=== PATIENT | female | born 1960 | race Caucasian/White ===

== ENCOUNTER 2017-12-26 21:48 | Inpatient (IN) | payer BC ==
[2017-12-26] MEDS: DEXTROSE 5%-0.45% NACL 1,000 ML IV (23:15)
[2017-12-26] MEDS: morphine 2 MG INJ IV (23:15)
[2017-12-27 00:58] LABS: ABNORMAL IP MESSAGE 1; HEMATOCRIT 27.9 % (37.0-47.0); HEMOGLOBIN 9.7 g/dl (12.0-16.0); MEAN CORPUSCULAR HEMOGLOBIN 32.1 pg (29.0-33.0); MEAN CORPUSCULAR HGB CONC 34.8 g/dl (32.0-37.0); MEAN CORPUSCULAR VOLUME 92.4 fl (82.0-101.0); MEAN PLATELET VOLUME 10.2 fl (7.4-10.4); PLATELET COUNT 206 10^3/UL (140-415); RED BLOOD COUNT 3.02 10^6/ul (4.20-5.40); RED CELL DISTRIBUTION WIDTH 12.6 % (11.5-14.5)
[2017-12-27 00:58] LABS: WHITE BLOOD COUNT 12.7 10^3/ul (4.8-10.8)
[2017-12-27 01:16] LABS: ALANINE AMINOTRANSFERASE 17 IU/L (13-69); ALBUMIN 3.8 g/dl (3.3-4.9); ALBUMIN/GLOBULIN RATIO 1.11; ALKALINE PHOSPHATASE 89 IU/L (42-121); ANION GAP 15 (8-16); ASPARTATE AMINO TRANSFERASE 11 IU/L (15-46); BILIRUBIN,INDIRECT 0.1 mg/dl (0-1.1); BILIRUBIN,TOTAL 0.1 mg/dl (0.2-1.3); BLOOD UREA NITROGEN 34 mg/dl (7-20); CALCIUM 8.5 mg/dl (8.4-10.2); CARBON DIOXIDE 22 mmol/L (21-31); CHLORIDE 104 mmol/L (97-110); CREATININE 1.44 mg/dl (0.44-1.00); GLUCOSE 144 mg/dl (70-220); MAGNESIUM 2.4 mg/dl (1.7-2.5); PHOSPHORUS 2.8 mg/dl (2.5-4.9); POTASSIUM 3.9 mmol/L (3.5-5.1); SODIUM 137 mmol/L (135-144); TOTAL PROTEIN 7.2 g/dl (6.1-8.1)
[2017-12-27 01:24] LABS: POSITIVE DIFF @See below
[2017-12-27 01:25] LABS: ADD MAN DIFF? YES
[2017-12-27 03:56] LABS: BAND NEUTROPHILS % (M) 8 % (0-4); BASOPHIL #M 0.1 10^3/ul (0.0-0.0); BASOPHILS % (M) 1 % (0-2); EOSINOPHILS % (M) 2 % (0-7); LYMPHOCYTES #M 1.9 10^3/ul (0.8-2.9); LYMPHOCYTES % (M) 15 % (15-51); METAMYELOCYTES #M 0.3 10^3/ul (0.0-0.0); METAMYELOCYTES %M 3 % (0-0); MONOCYTE #M 0.7 10^3/ul (0.3-0.9); MONOCYTES % (M) 6 % (0-11); MYELOCYTES #M 0.2 10^3/ul (0.0-0.0); MYELOCYTES % (M) 2 % (0-0); PLATELET ESTIMATE NORMAL; PROMYELOCYTES #M 0.2 10^3/ul (0-0); PROMYELOCYTES % (M) 2 % (0-0); SEG NEUT #M 7.9 10^3/ul (1.6-7.5); SEGMENTED NEUTROPHILS (M) % 61 % (39-77); SMUDGE%M 1 % (0-0)
[2017-12-27] MEDS: morphine 2 MG INJ IV ×3 (05:55→19:43)
[2017-12-27 07:20] LABS: ADD UMIC YES; UR ASCORBIC ACID NEGATIVE (NEGATIVE); UR BACTERIA FEW /HPF (NONE SEEN); UR BILIRUBIN (Dip) NEGATIVE (NEGATIVE); UR BLOOD (Dip) 1+ mg/dL (NEGATIVE); UR CLARITY CLEAR (CLEAR); UR COLOR YELLOW (YELLOW); UR GLUCOSE (Dip) NEGATIVE (NEGATIVE); UR KETONES (Dip) NEGATIVE (NEGATIVE); UR LEUKOCYTE ESTERASE (Dip) NEGATIVE Leu/ul (NEGATIVE); UR NITRITE (Dip) NEGATIVE (NEGATIVE); UR RBC 4 /HPF (0-5); UR SPECIFIC GRAVITY (Dip) 1.018 (1.003-1.030); UR TOTAL PROTEIN (Dip) 2+ mg/dl (NEGATIVE); UR UROBILINOGEN (Dip) NEGATIVE (NEGATIVE); UR WBC 4 /HPF (0-5)
[2017-12-27] MEDS: FAMOTIDINE 20 MG INJ IV ×2 (09:02→20:11)
[2017-12-27] MEDS: DEXTROSE 5%-0.45% NACL 1,000 ML IV (09:03)
[2017-12-27] MEDS: metroNIDAZOLE 500 MG/NS (PMX) 100 ML IVPB ×2 (12:16→21:33)
[2017-12-27 12:52] LABS: ANION GAP 16 (8-16); BLOOD UREA NITROGEN 22 mg/dl (7-20); CALCIUM 8.4 mg/dl (8.4-10.2); CARBON DIOXIDE 22 mmol/L (21-31); CHLORIDE 104 mmol/L (97-110); CREATININE 1.02 mg/dl (0.44-1.00); GLUCOSE 122 mg/dl (70-220); SODIUM 138 mmol/L (135-144)
[2017-12-27] MEDS: CIPROFLOXACIN 400MG/D5W 200 ML IVPB ×2 (13:20→20:11)
[2017-12-27] MEDS: SOD CHLORIDE 0.9% 1,000 ML IV ×2 (14:21→23:28)
[2017-12-27] MEDS: TAMSULOSIN (SR) 0.4 MG CAP PO (20:11)
[2017-12-28] MEDS: morphine 2 MG INJ IV ×4 (04:41→19:58)
[2017-12-28] MEDS: metroNIDAZOLE 500 MG/NS (PMX) 100 ML IVPB ×3 (05:23→22:21)
[2017-12-28] MEDS: SOD CHLORIDE 0.9% 1,000 ML IV ×3 (06:00→22:21)
[2017-12-28] MEDS: CIPROFLOXACIN 400MG/D5W 200 ML IVPB ×2 (08:26→20:25)
[2017-12-28] MEDS: FAMOTIDINE 20 MG INJ IV ×2 (08:27→20:24)
[2017-12-28 09:01] LABS: WHITE BLOOD COUNT 9.9 10^3/ul (4.8-10.8)
[2017-12-28 09:01] LABS: ABNORMAL IP MESSAGE 1; HEMATOCRIT 25.8 % (37.0-47.0); HEMOGLOBIN 8.5 g/dl (12.0-16.0); MEAN CORPUSCULAR HEMOGLOBIN 31.6 pg (29.0-33.0); MEAN CORPUSCULAR HGB CONC 32.9 g/dl (32.0-37.0); MEAN CORPUSCULAR VOLUME 95.9 fl (82.0-101.0); MEAN PLATELET VOLUME 10.1 fl (7.4-10.4); PLATELET COUNT 206 10^3/UL (140-415); RED BLOOD COUNT 2.69 10^6/ul (4.20-5.40); RED CELL DISTRIBUTION WIDTH 12.6 % (11.5-14.5)
[2017-12-28 09:04] LABS: POSITIVE DIFF @See below
[2017-12-28 09:05] LABS: ADD MAN DIFF? YES
[2017-12-28 09:26] LABS: ALANINE AMINOTRANSFERASE 21 IU/L (13-69); ALBUMIN 3.1 g/dl (3.3-4.9); ALKALINE PHOSPHATASE 87 IU/L (42-121); ANION GAP 14 (8-16); ASPARTATE AMINO TRANSFERASE 17 IU/L (15-46); BLOOD UREA NITROGEN 12 mg/dl (7-20); CALCIUM 8.1 mg/dl (8.4-10.2); CARBON DIOXIDE 22 mmol/L (21-31); CHLORIDE 108 mmol/L (97-110); CREATININE 0.84 mg/dl (0.44-1.00); GLUCOSE 108 mg/dl (70-220); POTASSIUM 3.6 mmol/L (3.5-5.1); SODIUM 140 mmol/L (135-144); TOTAL PROTEIN 6.2 g/dl (6.1-8.1)
[2017-12-28 10:04] LABS: BAND NEUTROPHILS #M 1.1 10^3/ul (0.0-0.6); BAND NEUTROPHILS % (M) 12 % (0-4); EOSINOPHILS % (M) 1 % (0-7); LYMPHOCYTES #M 1.6 10^3/ul (0.8-2.9); LYMPHOCYTES % (M) 17 % (15-51); MONOCYTES % (M) 21 % (0-11); PLATELET ESTIMATE NORMAL; REACTIVE LYMPHOCYTES #M 0.4 10^3/ul (0.0-0.0); REACTIVE LYMPHOCYTES% (M) 5 % (0-0); SEG NEUT #M 4.5 10^3/ul (1.6-7.5); SEGMENTED NEUTROPHILS (M) % 44 % (39-77); SMUDGE%M 12 % (0-0)
[2017-12-28] MEDS: BISACODYL (EC) 5 MG TAB PO (15:13)
[2017-12-28 15:29] LABS: ADD UMIC YES; UR ASCORBIC ACID NEGATIVE (NEGATIVE); UR BILIRUBIN (Dip) NEGATIVE (NEGATIVE); UR BLOOD (Dip) 1+ mg/dL (NEGATIVE); UR CLARITY CLEAR (CLEAR); UR COLOR YELLOW (YELLOW); UR GLUCOSE (Dip) 1+ mg/dL (NEGATIVE); UR KETONES (Dip) NEGATIVE (NEGATIVE); UR LEUKOCYTE ESTERASE (Dip) TRACE Leu/ul (NEGATIVE); UR NITRITE (Dip) NEGATIVE (NEGATIVE); UR RBC 31 /HPF (0-5); UR SPECIFIC GRAVITY (Dip) 1.013 (1.003-1.030); UR TOTAL PROTEIN (Dip) NEGATIVE (NEGATIVE); UR UROBILINOGEN (Dip) 1+ mg/dL (NEGATIVE); UR WBC 0 /HPF (0-5)
[2017-12-28] MEDS: POLYETHYLENE GLYCOL 3350 119 GM POWDER PO (18:34)
[2017-12-28] MEDS: ONDANSETRON 4 MG INJ IV (20:24)
[2017-12-28] MEDS: TAMSULOSIN (SR) 0.4 MG CAP PO (20:24)
[2017-12-29] MEDS: morphine 2 MG INJ IV ×6 (00:14→22:14)
[2017-12-29] MEDS: MAGNESIUM CITRATE 300 ML BTL PO (00:16)
[2017-12-29] MEDS: metroNIDAZOLE 500 MG/NS (PMX) 100 ML IVPB ×3 (06:31→21:08)
[2017-12-29] MEDS: SOD CHLORIDE 0.9% 1,000 ML IV ×3 (06:32→22:21)
[2017-12-29] MEDS: POLYETHYLENE GLYCOL 3350 119 GM POWDER PO (06:39)
[2017-12-29] MEDS: BISACODYL (EC) 5 MG TAB PO (06:40)
[2017-12-29 06:58] LABS: ABNORMAL IP MESSAGE 1; HEMATOCRIT 26.8 % (37.0-47.0); HEMOGLOBIN 8.9 g/dl (12.0-16.0); MEAN CORPUSCULAR HEMOGLOBIN 31.2 pg (29.0-33.0); MEAN CORPUSCULAR HGB CONC 33.2 g/dl (32.0-37.0); MEAN PLATELET VOLUME 10.2 fl (7.4-10.4); PLATELET COUNT 244 10^3/UL (140-415); RED BLOOD COUNT 2.85 10^6/ul (4.20-5.40); RED CELL DISTRIBUTION WIDTH 12.4 % (11.5-14.5)
[2017-12-29 06:58] LABS: WHITE BLOOD COUNT 15.7 10^3/ul (4.8-10.8)
[2017-12-29 07:03] LABS: ADD MAN DIFF? YES; POSITIVE DIFF @See below
[2017-12-29 07:19] LABS: ANION GAP 16 (8-16); BLOOD UREA NITROGEN 7 mg/dl (7-20); CALCIUM 8.3 mg/dl (8.4-10.2); CARBON DIOXIDE 21 mmol/L (21-31); CHLORIDE 107 mmol/L (97-110); CREATININE 0.73 mg/dl (0.44-1.00); GLUCOSE 119 mg/dl (70-220); POTASSIUM 3.5 mmol/L (3.5-5.1); SODIUM 140 mmol/L (135-144)
[2017-12-29] MEDS: FAMOTIDINE 20 MG INJ IV ×2 (08:32→21:07)
[2017-12-29] MEDS: CIPROFLOXACIN 400MG/D5W 200 ML IVPB ×2 (08:37→21:08)
[2017-12-29 09:12] LABS: BAND NEUTROPHILS #M 2.5 10^3/ul (0.0-0.6); BAND NEUTROPHILS % (M) 16 % (0-4); GIANT THROMBO% (M) 1 % (0-0); LYMPHOCYTES #M 2.5 10^3/ul (0.8-2.9); LYMPHOCYTES % (M) 16 % (15-51); MONOCYTE #M 0.9 10^3/ul (0.3-0.9); MONOCYTES % (M) 6 % (0-11); PLATELET ESTIMATE NORMAL; POLYCHROMASIA 2+ (0-0); SEG NEUT #M 10.1 10^3/ul (1.6-7.5); SEGMENTED NEUTROPHILS (M) % 62 % (39-77); SMUDGE%M 2 % (0-0)
[2017-12-29] MEDS: ONDANSETRON 4 MG INJ IV (09:49)
[2017-12-29] MEDS ORDERED: ALPRAZOLAM 0.5 MG TAB PO (11:00)
[2017-12-29] MEDS: TAMSULOSIN (SR) 0.4 MG CAP PO (21:08)
[2017-12-29] MEDS: QUETIAPINE 100 MG TAB PO (21:09)
[2017-12-30] MEDS: morphine 2 MG INJ IV ×4 (05:16→19:10)
[2017-12-30] MEDS: metroNIDAZOLE 500 MG/NS (PMX) 100 ML IVPB ×3 (05:17→23:13)
[2017-12-30] MEDS: SOD CHLORIDE 0.9% 1,000 ML IV ×4 (06:00→23:25)
[2017-12-30 06:57] LABS: ABNORMAL IP MESSAGE 1; HEMATOCRIT 29.6 % (37.0-47.0); HEMOGLOBIN 9.8 g/dl (12.0-16.0); MEAN CORPUSCULAR HEMOGLOBIN 31.4 pg (29.0-33.0); MEAN CORPUSCULAR HGB CONC 33.1 g/dl (32.0-37.0); MEAN CORPUSCULAR VOLUME 94.9 fl (82.0-101.0); MEAN PLATELET VOLUME 9.7 fl (7.4-10.4); PLATELET COUNT 305 10^3/UL (140-415); RED BLOOD COUNT 3.12 10^6/ul (4.20-5.40); RED CELL DISTRIBUTION WIDTH 12.5 % (11.5-14.5)
[2017-12-30 06:57] LABS: WHITE BLOOD COUNT 12.1 10^3/ul (4.8-10.8)
[2017-12-30 07:02] LABS: POSITIVE DIFF @See below
[2017-12-30 07:03] LABS: ADD MAN DIFF? YES
[2017-12-30 07:22] LABS: ANION GAP 15 (8-16); BLOOD UREA NITROGEN 5 mg/dl (7-20); CALCIUM 8.6 mg/dl (8.4-10.2); CARBON DIOXIDE 24 mmol/L (21-31); CHLORIDE 109 mmol/L (97-110); CREATININE 0.69 mg/dl (0.44-1.00); GLUCOSE 139 mg/dl (70-220); MAGNESIUM 1.9 mg/dl (1.7-2.5); POTASSIUM 3.2 mmol/L (3.5-5.1); SODIUM 145 mmol/L (135-144)
[2017-12-30 08:13] LABS: BAND NEUTROPHILS #M 0.3 10^3/ul (0.0-0.6); BAND NEUTROPHILS % (M) 3 % (0-4); EOSINOPHILS % (M) 4 % (0-7); LYMPHOCYTES #M 2.6 10^3/ul (0.8-2.9); LYMPHOCYTES % (M) 22 % (15-51); METAMYELOCYTES #M 0.1 10^3/ul (0.0-0.0); METAMYELOCYTES %M 1 % (0-0); MONOCYTE #M 0.7 10^3/ul (0.3-0.9); MONOCYTES % (M) 6 % (0-11); PLATELET ESTIMATE NORMAL; POIKILOCYTOSIS 1+ (0-0); POLYCHROMASIA 1+ (0-0); REACTIVE LYMPHOCYTES #M 0.2 10^3/ul (0.0-0.0); REACTIVE LYMPHOCYTES% (M) 2 % (0-0); SEG NEUT #M 7.5 10^3/ul (1.6-7.5); SEGMENTED NEUTROPHILS (M) % 62 % (39-77); SMUDGE%M 3 % (0-0)
[2017-12-30] MEDS: CIPROFLOXACIN 400MG/D5W 200 ML IVPB ×2 (09:09→21:02)
[2017-12-30] MEDS: FAMOTIDINE 20 MG INJ IV ×2 (09:09→21:02)
[2017-12-30] MEDS: CITALOPRAM 20 MG TAB PO (09:09)
[2017-12-30] MEDS: POTASSIUM CHLORIDE (SR) 20 MEQ TAB PO (14:37)
[2017-12-30] MEDS: QUETIAPINE 100 MG TAB PO (21:02)
[2017-12-30] MEDS: TAMSULOSIN (SR) 0.4 MG CAP PO (21:02)
[2017-12-31] MEDS: SOD CHLORIDE 0.9% 1,000 ML IV ×2 (05:32→16:09)
[2017-12-31] MEDS: metroNIDAZOLE 500 MG/NS (PMX) 100 ML IVPB ×3 (05:32→22:55)
[2017-12-31] MEDS: morphine 2 MG INJ IV ×4 (05:38→21:13)
[2017-12-31 06:44] LABS: WHITE BLOOD COUNT 9.3 10^3/ul (4.8-10.8)
[2017-12-31 06:44] LABS: ABNORMAL IP MESSAGE 1; HEMATOCRIT 28.5 % (37.0-47.0); HEMOGLOBIN 9.3 g/dl (12.0-16.0); MEAN CORPUSCULAR HEMOGLOBIN 31.3 pg (29.0-33.0); MEAN CORPUSCULAR HGB CONC 32.6 g/dl (32.0-37.0); MEAN PLATELET VOLUME 10.1 fl (7.4-10.4); PLATELET COUNT 337 10^3/UL (140-415); RED BLOOD COUNT 2.97 10^6/ul (4.20-5.40); RED CELL DISTRIBUTION WIDTH 12.5 % (11.5-14.5)
[2017-12-31 06:55] LABS: ANION GAP 15 (8-16); BLOOD UREA NITROGEN 4 mg/dl (7-20); CALCIUM 8.4 mg/dl (8.4-10.2); CARBON DIOXIDE 25 mmol/L (21-31); CHLORIDE 109 mmol/L (97-110); CREATININE 0.62 mg/dl (0.44-1.00); GLUCOSE 108 mg/dl (70-220); POTASSIUM 3.5 mmol/L (3.5-5.1); SODIUM 145 mmol/L (135-144)
[2017-12-31 07:01] LABS: ADD MAN DIFF? YES; POSITIVE DIFF @See below
[2017-12-31 09:20] LABS: BAND NEUTROPHILS #M 0.6 10^3/ul (0.0-0.6); BAND NEUTROPHILS % (M) 7 % (0-4); EOSINOPHILS % (M) 1 % (0-7); ERYTHROBLAST% (NRBC) (M) 1 % (0-0); GIANT THROMBO% (M) 1 % (0-0); LYMPHOCYTES #M 2.6 10^3/ul (0.8-2.9); LYMPHOCYTES % (M) 29 % (15-51); MONOCYTE #M 0.3 10^3/ul (0.3-0.9); MONOCYTES % (M) 4 % (0-11); MYELOCYTES #M 0.1 10^3/ul (0.0-0.0); MYELOCYTES % (M) 2 % (0-0); PLATELET ESTIMATE NORMAL; POLYCHROMASIA 1+ (0-0); REACTIVE LYMPHOCYTES #M 0.2 10^3/ul (0.0-0.0); REACTIVE LYMPHOCYTES% (M) 3 % (0-0); SEG NEUT #M 5.1 10^3/ul (1.6-7.5); SEGMENTED NEUTROPHILS (M) % 54 % (39-77); SMUDGE%M 4 % (0-0)
[2017-12-31] MEDS: FAMOTIDINE 20 MG INJ IV ×2 (09:33→21:12)
[2017-12-31] MEDS: CITALOPRAM 20 MG TAB PO (09:33)
[2017-12-31] MEDS: CIPROFLOXACIN 400MG/D5W 200 ML IVPB ×2 (09:33→21:25)
[2017-12-31] MEDS: HYOSCYAMINE 0.125 MG TAB PO ×2 (15:04→22:55)
[2017-12-31] MEDS: TAMSULOSIN (SR) 0.4 MG CAP PO (21:12)
[2017-12-31] MEDS: QUETIAPINE 100 MG TAB PO (21:12)
[2018-01-01] MEDS: SOD CHLORIDE 0.9% 1,000 ML IV ×2 (02:18→06:00)
[2018-01-01] MEDS: metroNIDAZOLE 500 MG/NS (PMX) 100 ML IVPB (06:44)
[2018-01-01] MEDS: CITALOPRAM 20 MG TAB PO (08:47)
[2018-01-01] MEDS: FAMOTIDINE 20 MG INJ IV (08:48)
[2018-01-01] MEDS: morphine 2 MG INJ IV (08:51)
[2018-01-01] MEDS: CIPROFLOXACIN 400MG/D5W 200 ML IVPB (08:54)
== END 2018-01-01 12:20 | disposition home or self-care (01) | DRG 394 ==
LOC: PP2 21:48
PROC: 0DBE8ZX Excision of Large Intestine, Via Natural or Artificial Opening Endoscopic, Diagnostic (ICD-10-PCS; principal; 2017-12-29 15:17)
DX: K55.059 Acute (reversible) ischemia of intestine, part and extent unspecified (principal); N17.9 Acute kidney failure, unspecified; K52.9 Noninfective gastroenteritis and colitis, unspecified; R33.9 Retention of urine, unspecified; I10 Essential (primary) hypertension; F41.9 Anxiety disorder, unspecified; D64.9 Anemia, unspecified; F32.9 Major depressive disorder, single episode, unspecified; T18.4XXA Foreign body in colon, initial encounter; X58.XXXA Exposure to other specified factors, initial encounter; Z59.0 Homelessness; Z86.03 Personal history of neoplasm of uncertain behavior
CPT/HCPCS: 74176; 76775; 80048; 80053; 81001; 83735; 84100; 85025; 87040; 87086; 88305